=== PATIENT | female | born 1960 | race Caucasian/White ===

== ENCOUNTER 2018-04-20 15:27 | Inpatient (IN) | payer OTHER ==
[~2018-04-20] VITALS: Ht 180.3 cm; Wt 133.6 kg
[2018-04-20] MEDS ORDERED: SODIUM CHLORIDE 0.9% 1000ML 1,000 ML IV STA (15:44)
[2018-04-20 16:37] LABS: CLARITY,URINE SL CLOUDY (CLEAR); COLOR,URINE YELLOW (YELLOW); KETONES,URINE 1+ (NEGATIVE); LEUKOCYTE ESTERASE ,URINE TRACE (NEGATIVE); NITRITE,URINE NEGATIVE (NEGATIVE); PROTEIN,URINE DIPSTICK 2+ (NEGATIVE); URINE UROBILINOGEN 1 mg/dL (0.2 - 1)
[2018-04-20 16:38] LABS: BILIRUBIN,URINE 2+ (NEGATIVE)
--- NOTE | 2018-04-20 16:46 | Diagnostic Imaging Report ---
EXAMINATION: CHEST 2 VIEWS INDICATION: ^FEVER UNKNOWN SOURCE ^[id number] ^1605 ^N COMPARISON: None FINDINGS: PA and lateral views TUBES and LINES: None. LUNGS: Lungs are well inflated. Diffuse reticular nodular opacities throughout the right lung and left lower lobe. no pulmonary edema. PLEURA: No pleural effusion or pneumothorax. HEART AND MEDIASTINUM: The cardiomediastinal silhouette is unremarkable. BONES AND SOFT TISSUES: No acute osseous lesion. Soft tissues are unremarkable. UPPER ABDOMEN: No free air under the diaphragm. IMPRESSION: Radiographic findings highly suggestive of multifocal pneumonia. Recommend follow-up in 4-6 weeks to demonstrate resolution. Signed by: Dr. Iliana Aguilar M.D. on 04/20/2018 4:42 PM
[2018-04-20 16:48] LABS: AMORPHOUS SEDIMENT,URINE FEW (FEW); BACTERIA,URINE MANY /HPF; EPITHELIAL CELLS,URINE FEW /LPF; TRANSITIONAL EPI CELLS,URINE FEW
[2018-04-20 16:54] LABS: BASOPHILS % 0.1 % (0.0-1.0); EOSINOPHILS % 0.1 % (0.0-6.0); HEMOGLOBIN 13.8 g/dL (12.0-16.0); LYMPHOCYTES # (AUTO) 0.5 (1.0-3.2); LYMPHOCYTES % 3.4 % (18.0-39.1); MEAN CORPUSCULAR HEMOGLOBIN 26.8 pg (28-32); MEAN CORPUSCULAR HGB CONC 32.9 g/dL (31-35); MEAN CORPUSCULAR VOLUME 81.6 fL (81-99); MONOCYTES # (AUTO) 1.1 (0.2-0.8); MONOCYTES % 7.6 % (4.4-11.3); NEUTROPHILS % 87.8 % (38.7-80.0); PLATELET COUNT 165 x10e3/uL (140-360); RED BLOOD COUNT 5.15 x10e6/uL (3.6-5.1); RED CELL DISTRIBUTION WIDTH 14.3 % (11.7-14.4)
[2018-04-20] MEDS ORDERED: CEFTRIAXONE SOD 1 GM VIAL IV ONE (17:00)
[2018-04-20 17:15] LABS: ALBUMIN 2.6 g/dL (3.5-5.0); ALBUMIN/GLOBULIN RATIO 0.5 (0.8-2.0); ANION GAP 21.4 mmol/L (8-16); CALCIUM 10.2 mg/dL (8.4-10.2); CREATININE, SERUM 1.56 mg/dL (0.57-1.11); POTASSIUM 3.4 mmol/L (3.5-5.1)
[2018-04-20] MEDS ORDERED: LEVOFLOXACIN 750MG/D5W 150ML 150 ML IV STA (17:18)
[2018-04-20] MEDS ORDERED: LEVOFLOXACIN 750MG/DEXTROSE PREMIX BAG 150ML IV SCH (17:45)
[2018-04-20] MEDS: ALBUTEROL SULF 0.083% NEB SOLN 3 ML NEB NEB SCH ×2 (17:45→21:45)
[2018-04-20 17:54] LABS: LYMPHOCYTES % (MANUAL) 6 % (19-48); MONOCYTES % (MANUAL) 7 % (3.4-9.0); NEUTROPHILS % (MANUAL) 86 % (40-74); PLATELET ESTIMATE ADEQUATE; PLATELET MORPHOLOGY COMMENT RARE EDTA CLUMPING; RBC MORPHOLOGY COMMENT NORMAL
[2018-04-20] MEDS: IPRATROPIUM BROMIDE 0.02% 2.5 ML NEB NEB SCH (18:00)
--- OUTSIDE RECORDS SUMMARY | 2018-04-20 18:07 | XMS REPORT ---
Author Author [facility] Address Unknown Phone Unavailable Care Team Providers Care Statistics Tutor Name Role Phone Hoemr QUARLES Unavailable Unavailable Problems This patient has no known problems. Allergies, Adverse Reactions, Alerts This patient has no known allergies or adverse reactions. Medications This patient has no known medications. Results Test Description Test Time Test Comments Text Results Atomic Results Result Comments CHEST 2 VIEWS 2018-04-20 16:41:00 [place] [address] Patient Name: JEREMIAS JOAQUIN MR #: [id number] : 1960 Age/Sex: 57/F Req #: [id number] Adm Physician: Ordered by: DELORIS QUARLES MD Report #: [id number] Location: ER Room/Bed: Procedure: [id number] DX/CHEST 2 VIEWS Exam Date: 04/20/18 Exam Time: 1605 REPORT STATUS: Signed EXAMINATION: CHEST 2 VIEWS INDICATION: FEVER UNKNOWN SOURCE [id number] N COMPARISON: None FINDINGS: PA and lateral views TUBES and LINES: None. LUNGS: Lungs are well inflated. Diffuse reticular nodular opacities throughout the right lung and left lower lobe. no pulmonary edema. PLEURA: No pleural effusion or pneumothorax. HEART AND MEDIASTINUM: The cardiomediastinal silhouette is unremarkable. BONES AND SOFT TISSUES: No acute osseous lesion. Soft tissues are unremarkable. UPPER ABDOMEN: No free air under the diaphragm. IMPRESSION: Radiographic findings highly suggestive of multifocal pneumonia. Recommend follow-up in 4-6 weeks to demonstrate resolution. Signed by: Dr. Magnolia Gibbons M.D. on 04/20/2018 4:42 PM Dictated By: MAGNOLIA GIBBONS MD 41 Transcribed By: SERINA on 04/20/181641 COPY TO: DELORIS QUARLES MD
[2018-04-20 20:23] VITALS: BP 125/59
[2018-04-20] MEDS: SODIUM CHLORIDE 0.9% 1000ML 1,000 ML IV SCH (21:26)
[2018-04-20] MEDS: CEFEPIME HCL 1 GM VIAL IV SCH (22:50)
[2018-04-20] MEDS: VANCOMYCIN 1GM/NS 250 ML 250 ML IV SCH (22:50)
[2018-04-20 22:51] VITALS: BP 125/59
[2018-04-20 22:57] VITALS: BP 125/59
[2018-04-21] VITALS (8 sets, daily range): BP systolic 104–142; BP diastolic 44–62
[2018-04-21] MEDS: ACETAMINOPHEN 325 MG TAB PO PRN (00:45)
[2018-04-21] MEDS: ALBUTEROL SULF 0.083% NEB SOLN 3 ML NEB NEB SCH ×7 (01:45→23:30)
[2018-04-21 05:11] LABS: BASOPHILS % 0.2 % (0.0-1.0); EOSINOPHILS # (AUTO) 0.1 (0.0-0.4); EOSINOPHILS % 0.9 % (0.0-6.0); HEMATOCRIT 37.1 % (34.2-44.1); LYMPHOCYTES # (AUTO) 0.7 (1.0-3.2); MEAN CORPUSCULAR HEMOGLOBIN 26.3 pg (28-32); MEAN CORPUSCULAR HGB CONC 32.3 g/dL (31-35); MEAN CORPUSCULAR VOLUME 81.2 fL (81-99); MONOCYTES # (AUTO) 0.9 (0.2-0.8); MONOCYTES % 7.4 % (4.4-11.3); NEUTROPHILS # (AUTO) 9.7 (2.1-6.9); NEUTROPHILS % 83.9 % (38.7-80.0); PLATELET COUNT 142 x10e3/uL (140-360); RED BLOOD COUNT 4.57 x10e6/uL (3.6-5.1); RED CELL DISTRIBUTION WIDTH 14.6 % (11.7-14.4)
[2018-04-21 05:27] LABS: ANION GAP 16.3 mmol/L (8-16); CALCIUM 9.3 mg/dL (8.4-10.2); CREATININE, SERUM 1.12 mg/dL (0.57-1.11); POTASSIUM 3.3 mmol/L (3.5-5.1)
[2018-04-21] MEDS: CEFEPIME HCL 1 GM VIAL IV SCH ×3 (05:38→22:00)
[2018-04-21] MEDS: SODIUM CHLORIDE 0.9% 1000ML 1,000 ML IV SCH (05:39)
[2018-04-21] MEDS: IPRATROPIUM BROMIDE 0.02% 2.5 ML NEB NEB SCH ×5 (06:00→23:30)
--- NOTE | 2018-04-21 06:52 | Diagnostic Imaging Report ---
EXAMINATION: CHEST SINGLE (PORTABLE) INDICATION: Pneumonia COMPARISON: 04/20/2018 FINDINGS: TUBES and LINES: None. LUNGS: Progression of airspace disease involving the right hemithorax predominantly the right upper lobe PLEURA: No pleural effusion or pneumothorax. HEART AND MEDIASTINUM: Cardiac size is mildly enlarged. BONES AND SOFT TISSUES: No acute osseous lesion. Soft tissues are unremarkable. UPPER ABDOMEN: No free air under the diaphragm. IMPRESSION: Progression of airspace disease involving the right hemithorax, predominantly the right upper lobe in keeping with pneumonia. Follow-up until resolution is recommended Signed by: Dr. Justin Gonzalez M.D. on 04/21/2018 6:48 AM
[2018-04-21] MEDS: VANCOMYCIN 1GM/NS 250 ML 250 ML IV SCH ×2 (08:30→21:00)
[2018-04-21] MEDS ORDERED: VANCOMYCIN HCL 1GM/NS 250 ML BAG IV SCH (09:00)
--- NOTE | 2018-04-21 10:01 | Consultation ---
DATE OF CONSULTATION: ADDENDUM X-ray today looks more congested possibly related to pulmonary edema. Will reduce fluids and monitor carefully. Monitor oximetry. Thank you for this kind referral. Job#: [id number] ANSHUL
[2018-04-21] MEDS: POTASSIUM CHLORIDE 20 MEQ TAB CR PO PRN (10:02)
--- NOTE | 2018-04-21 12:37 | Consultation ---
DATE OF CONSULTATION: PULMONARY CONSULTATION This is a patient of Dr. Goldstein. 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 Temperature as high as 102.5. She had been ill for 5 days. Been seen apparently at the school clinic and tested for flu, which she said was negative. She has had a cough. She has been nauseated and vomiting. This was after her illness started. The cough has been nonproductive. No one else ill at home. No regular medications. NO ALLERGIES. She has been a renal transplant donor for her son. She has had C-sections in the past. Works as a home school teacher. Born in [place]. Family history is noncontributory save for her son with renal failure. PHYSICAL EXAMINATION GENERAL: Moderately obese white female in no acute distress. VITALS: Temperature 97.5, pulse 92, respirations 20, blood pressure 132/60. HEAD: Normocephalic and atraumatic. EYES: The extraocular movements are intact. LUNGS: Bilateral rales and rhonchi. HEART: Regular rhythm. ABDOMEN: Nontender. EXTREMITIES: Nonedematous. IMPRESSION 1. Community-acquired pneumonia, likely atypical. 2. Moderately elevated glucose. PLAN: Continue Levaquin. If she becomes febrile again, would consider anaerobic cover. Consider stopping the cefepime and vancomycin if blood cultures are negative. Chest x-ray unable to view because of malfunction of PAC system. Thank you for this kind referral. Job#: [id number]
[2018-04-21] MEDS ORDERED: POTASSIUM CHLORIDE 20 MEQ TAB CR PO STA (16:21)
[2018-04-21] MEDS ORDERED: LEVOFLOXACIN 500MG/D5W 100ML 100 ML IV SCH (17:15)
--- NOTE | 2018-04-21 17:43 | History and Physical ---
HISTORY OF PRESENT ILLNESS: Patient is an 57-year-old female who has no past medical history according to her, who came here because of shortness of breath, cough, fever and generalized feelings of weakness. Patient was found to have pneumonia in the emergency room and very high fever. Started on broad-spectrum IV antibiotics and admitted to the hospital. REVIEW OF SYSTEMS CARDIOVASCULAR: No chest pain or palpitations. RESPIRATORY: She has cough, phlegm and fever. GENITOURINARY: No frequency. No dysuria. GASTROINTESTINAL: No nausea. No vomiting. No diarrhea. ALLERGIES: SHE CLAIMS SHE IS NOT ALLERGIC TO ANY MEDICATION. SOCIAL HISTORY: She does not smoke. She does not drink alcohol. PAST MEDICAL HISTORY: According to the patient, she never had any medical condition. PHYSICAL EXAMINATION VITAL SIGNS: Blood pressure 125/60, temperature 3.5, heart rate 96 per minute, respiratory rate 22 per minute. Oxygen saturation is 95%. HEART: Regular rhythm. Normal S1 and S2 sounds. LUNGS: Decreased breath sounds bilaterally. ABDOMEN: Soft. EXTREMITIES: No evidence of cyanosis, edema or trauma. LABS: On the BMP, sodium 134, potassium 3.3, chloride 98, CO2 23, BUN 13, creatinine 1.12. Glucose 134. On the CBC, white blood count 11,900. Hemoglobin 12.0; hematocrit 37.1; platelet count 142,000. AST 42, ALT 46, total bilirubin 1.0, alkaline phosphatase 184. Blood cultures have been sent, report is pending. Chest x-ray showed evidence of infiltrates in both lungs. The last report of the chest x-ray showed progression of air space disease involving the right hemithorax predominantly right upper lobe in keeping with pneumonia. Followup until resolution is recommended. IMPRESSION 1. Right upper lobe pneumonia. 2. Hypokalemia. 3. Hyponatremia. 4. Obesity. 5. anemia. PLAN OF TREATMENT: Albuterol q.4 h. Oxygen. Continue Atrovent q.6 h. Continue Levaquin 500 mg IV once a day for atypical pneumonia, vancomycin 1 gram IV twice a day, sodium chloride 50 mL an hour, Tylenol 175 mg q.6 h. as needed, cefepime 1 gram IV q.8 h. Continue heparin 5,000 units subcutaneously twice a day for DVT prophylaxis. Potassium has been replaced. We are going to recheck BMP and magnesium level tomorrow. Dr. Hernandez, electronic lab technician, has been consulted on the case. Job#: [id number]
[2018-04-21] MEDS ORDERED: LEVOFLOXACIN 750MG/D5W 150ML 150 ML IV SCH (18:00)
[2018-04-21] MEDS: HEPARIN SOD (PORCINE) 5,000 UNIT/ML VIAL SC SCH (21:00)
[2018-04-22] VITALS (8 sets, daily range): BP systolic 96–149; BP diastolic 46–75
[2018-04-22] MEDS: ALBUTEROL SULF 0.083% NEB SOLN 3 ML NEB NEB SCH ×6 (01:45→19:45)
[2018-04-22] MEDS: SODIUM CHLORIDE 0.9% 1000ML 1,000 ML IV SCH (04:47)
[2018-04-22] MEDS: ACETAMINOPHEN 325 MG TAB PO PRN (04:49)
[2018-04-22] MEDS: CEFEPIME HCL 1 GM VIAL IV SCH ×3 (06:10→21:29)
[2018-04-22 06:43] LABS: BASOPHILS % 0.4 % (0.0-1.0); EOSINOPHILS # (AUTO) 0.2 (0.0-0.4); EOSINOPHILS % 2.3 % (0.0-6.0); LYMPHOCYTES # (AUTO) 0.8 (1.0-3.2); LYMPHOCYTES % 7.6 % (18.0-39.1); MEAN CORPUSCULAR HEMOGLOBIN 26.4 pg (28-32); MEAN CORPUSCULAR HGB CONC 32.4 g/dL (31-35); MEAN CORPUSCULAR VOLUME 81.7 fL (81-99); NEUTROPHILS # (AUTO) 7.3 (2.1-6.9); PLATELET COUNT 151 x10e3/uL (140-360); RED BLOOD COUNT 4.16 x10e6/uL (3.6-5.1); RED CELL DISTRIBUTION WIDTH 14.8 % (11.7-14.4)
[2018-04-22] MEDS: IPRATROPIUM BROMIDE 0.02% 2.5 ML NEB NEB SCH ×3 (06:58→19:45)
[2018-04-22 07:13] LABS: ANION GAP 14.1 mmol/L (8-16); CALCIUM 9.2 mg/dL (8.4-10.2); CREATININE, SERUM 1.02 mg/dL (0.57-1.11); POTASSIUM 3.1 mmol/L (3.5-5.1)
[2018-04-22] MEDS: VANCOMYCIN 1GM/NS 250 ML 250 ML IV SCH ×2 (08:20→21:28)
[2018-04-22] MEDS: POTASSIUM CHLORIDE 20 MEQ TAB CR PO PRN (08:21)
[2018-04-22] MEDS: HEPARIN SOD (PORCINE) 5,000 UNIT/ML VIAL SC SCH ×2 (08:25→21:28)
[2018-04-22 09:17] LABS: BAND NEUTROPHILS % (MANUAL) 1 %; EOSINOPHILS % (MANUAL) 2 % (0-7); LYMPHOCYTES % (MANUAL) 8 % (19-48); MONOCYTES % (MANUAL) 8 % (3.4-9.0); NEUTROPHILS % (MANUAL) 80 % (40-74)
[2018-04-22 09:19] LABS: PLATELET ESTIMATE ADEQUATE; PLATELET MORPHOLOGY COMMENT NORMAL; RBC MORPHOLOGY COMMENT NORMAL
[2018-04-22] MEDS ORDERED: POTASSIUM CHLORIDE 20 MEQ TAB CR PO ONE (12:30)
--- NOTE | 2018-04-22 13:00 | Progress Note ---
DATE: INTERNAL MEDICINE PROGRESS NOTE SUBJECTIVE: She is feeling better today. She has some diarrhea. PHYSICAL EXAMINATION VITAL SIGNS: Blood pressure 112/52. Temperature 97.3. Heart rate 95 per minute. Respiratory rate 18 per minute. Oxygen saturation 92%. HEART: Regular rhythm. Normal S1, S2 sounds. LUNGS: Clear bilaterally. ABDOMEN: Nondistended. EXTREMITIES: No evidence of edema. LABS: On the BMP, sodium 134, potassium 3.1, chloride 100, CO2 23, BUN 10, creatinine 1.02, glucose 138. On the CBC, white blood count 10.0; hemoglobin 11.0; hematocrit 34.0; platelet count 151,000. AST 42, ALT 46, total bilirubin 1.0, and alkaline phosphatase 194. FINAL IMPRESSION 1. Right upper lobe pneumonia. 2. Hypokalemia. 3. Hyponatremia. 4. Obesity. 5. Mild anemia. PLAN OF TREATMENT: Continue albuterol q.4 h., Atrovent q.6 h., vancomycin 1 gram IV twice a day, Levaquin 500 mg IV daily. Continue with Tylenol 975 mg q.6 h. as needed, cefepime 1 gram IV q.8 h., heparin 5,000 units subcutaneously twice a day for DVT prophylaxis, potassium chloride 40 mEq today. BMP and magnesium level tomorrow. Job#: [id number]
[2018-04-22] MEDS: LEVOFLOXACIN 500MG/D5W 100ML 100 ML IV SCH (16:52)
[2018-04-23] VITALS (7 sets, daily range): BP systolic 102–125; BP diastolic 43–67
[2018-04-23] MEDS: ALBUTEROL SULF 0.083% NEB SOLN 3 ML NEB NEB SCH ×7 (01:45→21:45)
[2018-04-23] MEDS: SODIUM CHLORIDE 0.9% 1000ML 1,000 ML IV SCH ×2 (05:43→20:31)
[2018-04-23] MEDS: CEFEPIME HCL 1 GM VIAL IV SCH ×2 (05:44→13:57)
[2018-04-23 06:01] LABS: ANION GAP 14.2 mmol/L (8-16); CALCIUM 9.5 mg/dL (8.4-10.2); CREATININE, SERUM 0.96 mg/dL (0.57-1.11); POTASSIUM 3.2 mmol/L (3.5-5.1)
[2018-04-23] MEDS: IPRATROPIUM BROMIDE 0.02% 2.5 ML NEB NEB SCH ×4 (07:03→20:15)
[2018-04-23] MEDS: VANCOMYCIN 1GM/NS 250 ML 250 ML IV SCH ×2 (09:34→20:31)
[2018-04-23] MEDS: HEPARIN SOD (PORCINE) 5,000 UNIT/ML VIAL SC SCH ×2 (09:35→20:54)
[2018-04-23] MEDS: LEVOFLOXACIN 500MG/D5W 100ML 100 ML IV SCH (17:04)
[2018-04-23] MEDS ORDERED: POTASSIUM CHLORIDE 20 MEQ TAB CR PO STA (17:25)
[2018-04-24] VITALS: BP 119/54
[2018-04-24] MEDS: ALBUTEROL SULF 0.083% NEB SOLN 3 ML NEB NEB SCH ×4 (00:07→11:08)
--- NOTE | 2018-04-24 01:46 | Discharge Summary ---
HISTORY OF PRESENT ILLNESS: This is a 57-year-old female with no past medical history who came to the hospital complaining of shortness of breath. Patient was found to have pneumonia, started on broad-spectrum IV antibiotics, and she is doing better right now. White blood count is back to normal. She is afebrile. Oxygen saturation is more than 93%. The patient has been seen by Dr. Hernandez, vehicle leasing and rental manager, also. One of the antibiotics she has been on is discontinued already by Dr. Blum because of the improvement of symptoms. We are going to check the oxygen on room air, sitting and walking, and if the oxygen saturation is more than 90%, the patient might be able to go home without oxygen, so tentative discharge is for tomorrow if okay with osmar Smith and Dr. Fuller who will be covering for me over the weekend. PHYSICAL EXAM VITAL SIGNS: Blood pressure 106/49, temperature 98 degrees, heart rate 88 per minute, respiratory rate 19 per minute, and oxygen saturation 94%. HEART: Regular rhythm. Normal S1 and S2 sounds. LUNGS: Clear bilaterally. ABDOMEN: Soft. EXTREMITIES: No evidence of cyanosis or trauma. LABORATORY DATA: On the BMP, sodium 139, potassium 3.2, chloride 105, CO2 23, BUN 7, creatinine 0.86, and glucose 138. On the CBC, white blood count 10.0, hemoglobin 11.0, hematocrit 34.0, and platelet count 151 0. AST 42, ALT 46, total bilirubin 1.0, and alkaline phosphatase 184. FINAL IMPRESSION 1. Community-acquired pneumonia. 2. Hypokalemia. 3. Mild anemia. 4. Obesity. PLAN OF TREATMENT: She is going to be discharged on Levaquin 750 mg daily for 10 days if okay with osmar Smith, and if okay with Dr. Fuller who will be covering for me on the weekend. We are going to repeat a BMP and magnesium level tomorrow. Tentative discharge for tomorrow. Follow up will be in a week. Job#: [id number] JENNYFER
[2018-04-24 04:00] VITALS: BP 115/60
[2018-04-24 05:29] LABS: ANION GAP 15.1 mmol/L (8-16); CALCIUM 9.4 mg/dL (8.4-10.2); CREATININE, SERUM 1.01 mg/dL (0.57-1.11); MAGNESIUM 1.9 MG/DL (1.3-2.1); POTASSIUM 3.1 mmol/L (3.5-5.1)
[2018-04-24] MEDS: POTASSIUM CHLORIDE 20 MEQ TAB CR PO PRN (06:32)
[2018-04-24] MEDS: IPRATROPIUM BROMIDE 0.02% 2.5 ML NEB NEB SCH ×4 (07:30→15:12)
[2018-04-24] MEDS: VANCOMYCIN 1GM/NS 250 ML 250 ML IV SCH (07:57)
[2018-04-24] MEDS: HEPARIN SOD (PORCINE) 5,000 UNIT/ML VIAL SC SCH (07:59)
[2018-04-24 08:00] VITALS: BP 112/51
[2018-04-24 09:00] VITALS: BP 112/51
[2018-04-24 12:00] VITALS: BP 105/50
[2018-04-24 12:20] LABS: BASOPHILS # (AUTO) 0.1 (0.0-0.1); BASOPHILS % 0.5 % (0.0-1.0); EOSINOPHILS # (AUTO) 0.4 (0.0-0.4); EOSINOPHILS % 3.7 % (0.0-6.0); HEMATOCRIT 34.6 % (34.2-44.1); HEMOGLOBIN 10.8 g/dL (12.0-16.0); LYMPHOCYTES # (AUTO) 1.1 (1.0-3.2); MEAN CORPUSCULAR HEMOGLOBIN 26.4 pg (28-32); MEAN CORPUSCULAR HGB CONC 31.2 g/dL (31-35); MEAN CORPUSCULAR VOLUME 84.6 fL (81-99); MONOCYTES # (AUTO) 0.7 (0.2-0.8); MONOCYTES % 6.9 % (4.4-11.3); NEUTROPHILS % 62.5 % (38.7-80.0); PLATELET COUNT 240 x10e3/uL (140-360); RED BLOOD COUNT 4.09 x10e6/uL (3.6-5.1); RED CELL DISTRIBUTION WIDTH 15.4 % (11.7-14.4)
[2018-04-24] MEDS ORDERED: POTASSIUM CHLORIDE 20 MEQ TAB CR PO NR (12:23)
[2018-04-24 13:30] LABS: BAND NEUTROPHILS % (MANUAL) 5 %; EOSINOPHILS % (MANUAL) 4 % (0-7); LYMPHOCYTES % (MANUAL) 8 % (19-48); METAMYELOCYTES % (MANUAL) 3 % (0-0); MONOCYTES % (MANUAL) 15 % (3.4-9.0); MYELOCYTES % (MANUAL) 3 % (0-0); NEUTROPHILS % (MANUAL) 62 % (40-74); PLATELET ESTIMATE ADEQUATE; PLATELET MORPHOLOGY COMMENT NORMAL; RBC MORPHOLOGY COMMENT NORMAL
--- NOTE | 2018-04-24 13:56 | Diagnostic Imaging Report ---
EXAMINATION: CHEST 2 VIEWS INDICATION: Pneumonia. COMPARISON: Chest x-ray 04/21/2018 FINDINGS: PA and lateral views TUBES and LINES: None. LUNGS: Lungs are well inflated. Bilateral multifocal pneumonia, right greater than left. Improvement in the right upper lobe. PLEURA: No pleural effusion or pneumothorax. HEART AND MEDIASTINUM: The cardiomediastinal silhouette is unremarkable. BONES AND SOFT TISSUES: No acute osseous lesion. Soft tissues are unremarkable. UPPER ABDOMEN: No free air under the diaphragm. IMPRESSION: Improving multifocal pneumonia especially in the right upper lobe. Signed by: Dr. Chay Murillo M.D. on 04/24/2018 1:53 PM
[2018-04-24 16:00] VITALS: BP 117/53
[2018-04-24] MEDS ORDERED: LEVAQUIN500 MG PO (17:26)
[2018-04-24] MEDS: SODIUM CHLORIDE 0.9% 1000ML 1,000 ML IV SCH (17:49)
== END 2018-04-24 17:57 | disposition home or self-care (01) | DRG 871 ==
LOC: ER 15:27 → ERHOLD 18:05 → MED/SURG2 18:09
PROVIDERS: ADMIT Internal Medicine; ATTEND Internal Medicine
DX: A41.9 Sepsis, unspecified organism (principal); J18.9 Pneumonia, unspecified organism; E87.1 Hypo-osmolality and hyponatremia; Z68.41 Body mass index [BMI] 40.0-44.9, adult; R65.20 Severe sepsis without septic shock; E87.6 Hypokalemia; E86.0 Dehydration; E66.01 Morbid (severe) obesity due to excess calories; D64.9 Anemia, unspecified
CPT/HCPCS: 36415; 71045; 71046; 80048; 80053; 80202; 81001; 83036; 83605; 83735; 85025; 87040; 87070; 87086; 87205; 94640; 99284; J0692; J0696; J1644; J1956; J3370; J7030

== ENCOUNTER 2020-01-10 18:49 | Observation (INO) | payer OTHER ==
[~2020-01-10] VITALS: Ht 180.3 cm; Wt 151.0 kg
[~2020-01-10 18:49] MED LIST: LEVAQUIN500 MG PO
[2020-01-10] MEDS ORDERED: ACETAMINOPHEN 325 MG TAB PO NR (19:45)
[2020-01-10] MEDS ORDERED: ONDANSETRON HCL INJ 2MG/ML 2ML 2 MG/ML VIAL IV STA (19:45)
[2020-01-10] MEDS ORDERED: PANTOPRAZOLE 40 MG 10ML VIAL IV STA (19:45)
[2020-01-10] MEDS ORDERED: DICYCLOMINE HCL 20 MG/2 ML VIAL IM ONE ×2 (19:45→19:50)
[2020-01-10] MEDS ORDERED: PANTOPRAZOLE 40 MG 10ML VIAL ONE (19:50)
[2020-01-10] MEDS ORDERED: ACETAMINOPHEN 325 MG TAB ONE (19:50)
[2020-01-10] MEDS ORDERED: ONDANSETRON HCL INJ 2MG/ML 2ML 2 MG/ML VIAL ONE (19:50)
--- NOTE | 2020-01-10 20:05 | Emergency Department Note ---
History of Present Illnes History of Present Illness Chief Complaint: Abdominal Complaints History of Present Illness This is a 59 year old female epigastric pain, intermittent `fever with nausea x1 day, vomiting yesterday; STATES WORSE AFTER EATING, . Historian: Patient Arrival Mode: Car Onset (how long ago): day(s) (1) Location: UPPER ABDOMEN Quality: PAIN Radiation: Reports non-radiation Severity: moderate Onset quality: sudden Duration (how long): day(s) (1) Progression: unchanged Chronicity: new Context: Denies recent illness Relieving factors: none Exacerbating factors: other (EATING) Associated symptoms: Reports denies other symptoms Treatments prior to arrival: none Past Medical/Family History Physician Review I have reviewed the patient's past medical and family history. Any updates have been documented here. Past Medical History Recent Fever: No Clinical Suspicion of Infectio: No New/Unexplained Change in Ment: No Past Medical History: None Past Surgical History: Other Surgery: Kidney removed (donation) Social History Smoking Cessation: Never Smoker Counseling Performed: No Alcohol Use: None Any Illegal Drug Use: No Physically hurt or threatened: No Other Last Tetanus: UTD Any Pre-Existing Lines (PICC,: No Review of Systems Review of Systems Constitutional: Reports no symptoms EENTM: Reports no symptoms Cardiovascular: Reports no symptoms Respiratory: Reports no symptoms Gastrointestinal: Reports as per HPI Genitourinary: Reports no symptoms Musculoskeletal: Reports no symptoms Integumentary: Reports no symptoms Neurological: Reports no symptoms Psychological: Reports no symptoms Endocrine: Reports no symptoms Hematological/Lymphatic: Reports no symptoms Physical Exam Related Data Allergies: Coded Allergies: No Known Allergies (Unverified , 04/20/18) Triage Vital Signs Vital Signs Date Time Temp Pulse Resp B/P (MAP) Pulse Ox O2 Delivery O2 Flow Rate FiO2 01/10/20 19:34 99.3 89 18 161/81 98 Room Air Vital signs reviewed: Yes Physical Exam CONSTITUTIONAL Constitutional: Present well-developed, Present well-nourished, Present distressed (MILD) HENT HENT: Present normocephalic, Present atraumatic, Present oropharynx clear/moist, Present nose normal HENT L/R: Present left ext ear normal, Present right ext ear normal EYES Eyes: Reports PERRL, Reports conjunctivae normal NECK Neck: Present ROM normal PULMONARY Pulmonary: Present effort normal, Present breath sounds normal CARDIOVASCULAR Cardiovascular: Present regular rhythm, Present heart sounds normal, Present capillary refill normal, Present normal rate GASTROINTESTINAL Abdominal: Present soft, Present bowel sounds normal, Present tender (MODERATED EPIGASTRIC AND RUQ) GENITOURINARY Genitourinary: Present exam deferred SKIN Skin: Present warm, Present dry MUSCULOSKELETAL Musculoskeletal: Present ROM normal NEUROLOGICAL Neurological: Present alert, Present oriented x 3, Present no gross motor or sensory deficits PSYCHOLOGICAL Psychological: Present mood/affect normal, Present judgement normal Results Laboratory Laboratory Laboratory Tests Test 01/10/20 19:41 White Blood Count 10.08 x10e3/uL (4.8-10.8) Red Blood Count 5.93 x10e6/uL (3.6-5.1) Hemoglobin 15.4 g/dL (12.0-16.0) Hematocrit 48.5 % (34.2-44.1) Mean Corpuscular Volume 81.8 fL (81-99) Mean Corpuscular Hemoglobin 26.0 pg (28-32) Mean Corpuscular Hemoglobin Concent 31.8 g/dL (31-35) Red Cell Distribution Width 13.5 % (11.7-14.4) Platelet Count 201 x10e3/uL (140-360) Neutrophils (%) (Auto) 82.4 % (38.7-80.0) Lymphocytes (%) (Auto) 8.4 % (18.0-39.1) Monocytes (%) (Auto) 8.5 % (4.4-11.3) Eosinophils (%) (Auto) 0.1 % (0.0-6.0) Basophils (%) (Auto) 0.1 % (0.0-1.0) Neutrophils # (Auto) 8.3 (2.1-6.9) Lymphocytes # (Auto) 0.9 (1.0-3.2) Monocytes # (Auto) 0.9 (0.2-0.8) Eosinophils # (Auto) 0.0 (0.0-0.4) Basophils # (Auto) 0.0 (0.0-0.1) Absolute Immature Granulocyte (auto 0.05 x10e3/uL (0-0.1) Sodium Level 136 mmol/L (136-145) Potassium Level 3.8 mmol/L (3.5-5.1) Chloride Level 97 mmol/L (98-107) Carbon Dioxide Level 28 mmol/L (22-29) Anion Gap 14.8 mmol/L (8-16) Blood Urea Nitrogen 8 mg/dL (7-26) Creatinine 1.15 mg/dL (0.57-1.11) Estimat Glomerular Filtration Rate 48 ML/MIN (60-) BUN/Creatinine Ratio 7 (6-25) Glucose Level 173 mg/dL (74-118) Calcium Level 10.1 mg/dL (8.4-10.2) Total Bilirubin 1.1 mg/dL (0.2-1.2) Aspartate Amino Transf (AST/SGOT) 29 IU/L (5-34) Alanine Aminotransferase (ALT/SGPT) 52 IU/L (0-55) Alkaline Phosphatase 97 IU/L (40-150) Creatine Kinase 49 IU/L (29-168) Creatine Kinase MB 0.70 ng/mL (0-5.0) Troponin I 0.052 ng/mL (0-0.300) Total Protein 7.5 g/dL (6.5-8.1) Albumin 3.8 g/dL (3.5-5.0) Globulin 3.7 g/dL (2.3-3.5) Albumin/Globulin Ratio 1.0 (0.8-2.0) Amylase Level 54 U/L (25-125) Lipase 32 U/L (8-78) Lab results reviewed: Yes Imaging Imaging results reviewed: Yes Impressions Procedure: [id number] US/US GALLBLADDER Exam Date: 01/10/20 Exam Time: 2105 REPORT STATUS: Signed EXAM: Right Upper Quadrant Ultrasound INDICATION: Right upper quadrant pain. COMPARISON: None. TECHNIQUE: Transverse and longitudinal images of the right upper abdomen were obtained. FINDINGS: Liver: Size: 15.3 cm in the right midclavicular line, normal Appearance: Normal echogenicity, smooth contour Mass: No focal masses Gallbladder: Stones/Sludge: Mobile echogenic stone in the gallbladder fundus. Wall: 0.3 cm, upper limit of normal Appearance: Distended, borderline hydropic Sonographic George's Sign: Negative Bile Ducts: Intrahepatic Ducts: No dilatation Extrahepatic Ducts: Common bile duct measures 0.287 cm, no dilatation Pancreas: Not well seen Right Kidney: Size: 12.1 cm Echogenicity: Normal Parenchymal thickness: Normal Collecting system: No hydronephrosis Stones: None Cyst/Mass: None Vessels: Aorta: Visualized portions are normal Inferior Vena Cava: Visualized portions are normal Main portal vein: Normal size and flow direction. Free Fluid: No ascites or pleural effusion IMPRESSION: Borderline gallbladder hydrops and cholelithiasis. Cholecystitis is possible. Signed by: Isaura Hernandez DO on 01/10/2020 10:43 PM Dictated By: ISAURA HERNANDEZ DO 42 Transcribed By: SERINA on 01/10/202242 COPY TO: VIVEK GONZALES MD~ Procedures 12 Lead ECG Interpretation ECG Interpretation : ECG: ECG 1 Configuration Management Manager: Interpreted by ED physician Date: Jan 10, 2020 Time: 19:38 Rhythm: sinus rhythm Rate: normal BPM: 85 QRS axis: normal ST segments normal: Yes T waves normal: Yes Clinical Impression: normal ECG Assessment & Plan Medical Decision Making MDM PT WITH UPPER ABD PAIN, N/V CBC,CMP. EKG, CARDIAC ENZYMES, GALLBLADDER US, AMYLASE, LIPASE, ORDERED TO EVAL FOR MYOCARDIAL INFARCTION, ELEVATED LFT'S, GALLSTONES, PANCREATITIS, ELECTROLYTE ABNORMALITY PROTONIX 40 MG IV ORDERED ZOFRAN 4 MG IV ORDERED BENTYL 20 MG IM ORDERED PT FOUND TO HAVE CHOLECYSTITIS, I SPOKE WITH DR TIMMONS AND DR KIM ADMIT TO INPATIENT, KEEP NPO Reassessment Reassessment time: 23:42 Reassessment PT STILL WITH UPPER ABD PAIN, I WENT OVER LABS AND ULTRASOUND REPORT WITH PT, ADVISED PT SHE WOULD BE ADMITTED FOR CHOLECYSTECTOMY. Assessment & Plan Final Impression: (1) Cholecystitis Last Vital Signs Date Time Temp Pulse Resp B/P (MAP) Pulse Ox O2 Delivery O2 Flow Rate FiO2 01/10/20 19:34 99.3 89 18 161/81 98 Room Air Home Meds Reported Medications Levofloxacin (LEVAQUIN) 500 Mg Tablet, 500 MG PO DAILY for 10 Days, TAB 04/24/18 Medications in the ED Dicyclomine HCl 20 mg STK-MED ONCE IM ; Start 01/10/20 at 19:50; Stop 01/10/20 at 19:44; Status DC Acetaminophen 975 mg STK-MED ONCE .ROUTE ; Start 01/10/20 at 19:50; Stop 01/10/20 at 19:44; Status DC Ondansetron HCl 4 mg STK-MED ONCE .ROUTE ; Start 01/10/20 at 19:50; Stop 01/10/20 at 19:44; Status DC Pantoprazole Sodium 40 mg STK-MED ONCE .ROUTE ; Start 01/10/20 at 19:50; Stop 01/10/20 at 19:44; Status DC Pantoprazole Sodium 40 mg NOW STAT IV Last administered on 01/10/20at 19:51; Admin Dose 40 MG; Start 01/10/20 at 19:45; Stop 01/10/20 at 19:46; Status UNV Ondansetron HCl 4 mg NOW STAT IV Last administered on 01/10/20at 19:51; Admin Dose 4 MG; Start 01/10/20 at 19:45; Stop 01/10/20 at 19:46; Status UNV Dicyclomine HCl 20 mg ONCE ONCE IM Last administered on 01/10/20at 19:51; Admin Dose 20 MG; Start 01/10/20 at 19:45; Stop 01/10/20 at 19:46; Status UNV Acetaminophen 650 mg ONCE ONCE PO ; Start 01/10/20 at 19:45; Stop 01/10/20 at 19:46; Status UNV VIVEK GONZALES MD Jan 10, 2020 20:04
[2020-01-10 20:10] LABS: BASOPHILS % 0.1 % (0.0-1.0); EOSINOPHILS % 0.1 % (0.0-6.0); HEMATOCRIT 48.5 % (34.2-44.1); HEMOGLOBIN 15.4 g/dL (12.0-16.0); LYMPHOCYTES # (AUTO) 0.9 (1.0-3.2); LYMPHOCYTES % 8.4 % (18.0-39.1); MEAN CORPUSCULAR HGB CONC 31.8 g/dL (31-35); MEAN CORPUSCULAR VOLUME 81.8 fL (81-99); MONOCYTES # (AUTO) 0.9 (0.2-0.8); MONOCYTES % 8.5 % (4.4-11.3); NEUTROPHILS # (AUTO) 8.3 (2.1-6.9); NEUTROPHILS % 82.4 % (38.7-80.0); PLATELET COUNT 201 x10e3/uL (140-360); RED BLOOD COUNT 5.93 x10e6/uL (3.6-5.1); RED CELL DISTRIBUTION WIDTH 13.5 % (11.7-14.4)
[2020-01-10] MEDS ORDERED: ONDANSETRON HCL INJ 2MG/ML 2ML 2 MG/ML VIAL IV NR (20:15)
[2020-01-10] MEDS ORDERED: DICYCLOMINE HCL 20 MG/2 ML VIAL IM NR (20:15)
[2020-01-10] MEDS ORDERED: PANTOPRAZOLE 40 MG 10ML VIAL IV NR (20:15)
[2020-01-10 20:29] LABS: ALBUMIN 3.8 g/dL (3.5-5.0); AMYLASE 54 U/L (25-125); ANION GAP 14.8 mmol/L (8-16); CALCIUM 10.1 mg/dL (8.4-10.2); CREATININE, SERUM 1.15 mg/dL (0.57-1.11); LIPASE 32 U/L (8-78); POTASSIUM 3.8 mmol/L (3.5-5.1)
[2020-01-10 20:36] LABS: CREATINE KINASE MB 0.7 ng/mL (0-5.0)
--- NOTE | 2020-01-10 22:47 | Diagnostic Imaging Report ---
EXAM: Right Upper Quadrant Ultrasound INDICATION: Right upper quadrant pain. COMPARISON: None. TECHNIQUE: Transverse and longitudinal images of the right upper abdomen were obtained. FINDINGS: Liver: Size: 15.3 cm in the right midclavicular line, normal Appearance: Normal echogenicity, smooth contour Mass: No focal masses Gallbladder: Stones/Sludge: Mobile echogenic stone in the gallbladder fundus. Wall: 0.3 cm, upper limit of normal Appearance: Distended, borderline hydropic Sonographic George's Sign: Negative Bile Ducts: Intrahepatic Ducts: No dilatation Extrahepatic Ducts: Common bile duct measures 0.287 cm, no dilatation Pancreas: Not well seen Right Kidney: Size: 12.1 cm Echogenicity: Normal Parenchymal thickness: Normal Collecting system: No hydronephrosis Stones: None Cyst/Mass: None Vessels: Aorta: Visualized portions are normal Inferior Vena Cava: Visualized portions are normal Main portal vein: Normal size and flow direction. Free Fluid: No ascites or pleural effusion IMPRESSION: Borderline gallbladder hydrops and cholelithiasis. Cholecystitis is possible. Signed by: Donald Hernandez DO on 01/10/2020 10:43 PM
[2020-01-10] MEDS ORDERED: MORPHINE SULFATE INJ 4 MG/ML INJ 1ML IV PRN (23:45)
[2020-01-11] VITALS (9 sets, daily range): BP systolic 123–158; BP diastolic 73–98
[2020-01-11] MEDS ORDERED: ACETAMINOPHEN 325 MG SUPP PR PRN (00:30)
[2020-01-11] MEDS: SODIUM CHLORIDE 0.9% 1000ML 1,000 ML IV SCH ×3 (00:49→15:45)
--- NOTE | 2020-01-11 00:50 | NUR ---
RECEIVED PATIENT FROM ER IN STABLE CONDITION, NO SIGNS OF DISTRESS NOTED. IV FLUIDS ARE RUNNING AT ORDERED RATE AND PATIENT VOICES PAIN AT A LEVEL OF 4 AND DECLINED MEDICATION. LUNG SOUNDS ARE CLEAR AND PATIENT MEDICATED FOR NAUSEA. BED IN LOWEST POSITION, BOTH SIDE RAILS ARE UP, CALL LIGHT IS WITHIN EASY REACH, WILL CONTINUE TO MONITOR.
[2020-01-11] MEDS: ONDANSETRON HCL INJ 2MG/ML 2ML 2 MG/ML VIAL IV PRN (01:00)
[2020-01-11 05:49] LABS: CHOL/HDL RATIO 2.8 (3.0-3.6); MAGNESIUM 1.9 MG/DL (1.3-2.1); PHOSPHORUS 2.8 MG/DL (2.3-4.7)
[2020-01-11] MEDS: PIPER-TAZ 3.375 GM / NS 50ML IV SCH ×2 (05:57→14:00)
[2020-01-11 06:05] LABS: ALBUMIN 3.4 g/dL (3.5-5.0); ANION GAP 11.9 mmol/L (8-16); CALCIUM 9.1 mg/dL (8.4-10.2); CREATININE, SERUM 1.3 mg/dL (0.57-1.11); POTASSIUM 3.9 mmol/L (3.5-5.1)
[2020-01-11 06:11] LABS: THYROID STIMULATING HORMONE 1.745 uIU/mL (0.350-4.940)
[2020-01-11 06:25] LABS: BASOPHILS % 0.2 % (0.0-1.0); EOSINOPHILS % 0.2 % (0.0-6.0); HEMATOCRIT 44.6 % (34.2-44.1); HEMOGLOBIN 13.9 g/dL (12.0-16.0); LYMPHOCYTES # (AUTO) 1.2 (1.0-3.2); LYMPHOCYTES % 12.6 % (18.0-39.1); MEAN CORPUSCULAR HEMOGLOBIN 25.7 pg (28-32); MEAN CORPUSCULAR HGB CONC 31.2 g/dL (31-35); MEAN CORPUSCULAR VOLUME 82.6 fL (81-99); MONOCYTES # (AUTO) 1.1 (0.2-0.8); MONOCYTES % 11.5 % (4.4-11.3); NEUTROPHILS # (AUTO) 6.9 (2.1-6.9); NEUTROPHILS % 75.1 % (38.7-80.0); PLATELET COUNT 202 x10e3/uL (140-360); RED CELL DISTRIBUTION WIDTH 13.7 % (11.7-14.4)
--- NOTE | 2020-01-11 07:10 | NUR ---
RCD PT AT BED PT IS ALERT AND ORIENTED IV PATENT BY SALINE FLUSH BED LOW AND LOCKED CALL LIGHT IN REACH
--- NOTE | 2020-01-11 08:51 | Consultation ---
DATE OF CONSULTATION: 01/11/2020 CHIEF COMPLAINT: Abdominal pain. HISTORY OF PRESENT ILLNESS: The patient is a 59-year-old female, complaining of pain in the epigastric area, radiating to the mid chest for 2 days. No fever or diarrhea. No prior episode of similar attacks. PAST MEDICAL HISTORY: Positive for chronic GERD. PAST SURGICAL HISTORY: Positive for and nephrectomy for donor purpose. ALLERGIES: NO DRUG ALLERGIES. SOCIAL HABITS: No smoking or alcohol abuse. REVIEW OF SYSTEMS: No cough, chest pain, shortness of breath, or fevers. PHYSICAL EXAMINATION: VITAL SIGNS: Stable, afebrile. GENERAL: She is awake, alert, in moderate discomfort. HEENT: Sclerae are nonicteric. NECK: Supple. LUNGS: Clear. HEART: Regular rate and rhythm. ABDOMEN: Soft with some guarding tenderness in the epigastric region with no rebound. EXTREMITIES: No cyanosis or edema. LABORATORY DATA: White cell count is 9, hemoglobin of 13.9, and platelet count of 202. Creatinine 1.3. Liver function tests within normal limits with lipase of 27. Ultrasound of the gallbladder show borderline gallbladder hydrops and gallstones, possible cholecystitis. PLAN: HIDA scan ordered. We will follow the patient for possible cholecystectomy if cholecystitis is confirmed. Sergio Clayton MD DNL/MODL /[id number]
[2020-01-11] MEDS ORDERED: MORPHINE SULFATE INJ 4 MG/ML INJ 1ML IV ONE (15:00)
--- NOTE | 2020-01-11 16:22 | Diagnostic Imaging Report ---
HIDA Scan with Morphine Challenge Clinical information: Abdominal pain with N/V; cholelithiasis on ultrasound of 01/10/2020 Report: Following the administration of 6.5 of Tc-99m mebrofenin, dynamic images of the abdomen in the anterior projection were obtained through 60 minutes. Then, morphine sulfate 4 mg was administered via slow IV push and additional images were obtained through 30 minutes. Perfusion to the liver is normal. Extraction of tracer by the liver parenchyma is normal. Tracer appears promptly within the biliary tract. Tracer is seen within the small bowel by 30 minutes. The gallbladder does not fill during the initial 60 minutes of dynamic imaging. Following administration of morphine, the gallbladder also does not fill. Impression: Absence of filling of the gallbladder, even following administration of morphine, is consistent with the diagnosis of acute cystic duct obstruction/acute cholecystitis. Signed by: Dr. Huong Cain M.D. on 01/11/2020 4:19 PM
--- NOTE | 2020-01-11 18:45 | NUR ---
PT RESTING ON BED BED SIDE REPORT GIVEN TO ONCOMING NURSE
--- NOTE | 2020-01-11 19:22 | NUR ---
Patient received sitting up in bed. AAO x 4. Patient had no complaints of pain. Respirations even and non-labored. IVF infusing at 125 cc/hr. Fall precautions implemented. Patient instructed to call for assistance when needed. Call light within reach.
[2020-01-12] VITALS (8 sets, daily range): BP systolic 113–192; BP diastolic 56–93
[2020-01-12] MEDS: PIPER-TAZ 3.375 GM / NS 50ML IV SCH ×4 (01:38→21:52)
[2020-01-12] MEDS: SODIUM CHLORIDE 0.9% 1000ML 1,000 ML IV SCH (02:30)
[2020-01-12 05:45] LABS: BASOPHILS % 0.3 % (0.0-1.0); EOSINOPHILS # (AUTO) 0.1 (0.0-0.4); EOSINOPHILS % 2.1 % (0.0-6.0); HEMATOCRIT 41.3 % (34.2-44.1); HEMOGLOBIN 12.6 g/dL (12.0-16.0); LYMPHOCYTES # (AUTO) 1.4 (1.0-3.2); LYMPHOCYTES % 21.8 % (18.0-39.1); MEAN CORPUSCULAR HEMOGLOBIN 26.5 pg (28-32); MEAN CORPUSCULAR HGB CONC 30.5 g/dL (31-35); MEAN CORPUSCULAR VOLUME 86.9 fL (81-99); MONOCYTES # (AUTO) 0.7 (0.2-0.8); MONOCYTES % 11.9 % (4.4-11.3); NEUTROPHILS # (AUTO) 3.9 (2.1-6.9); NEUTROPHILS % 63.3 % (38.7-80.0); PLATELET COUNT 154 x10e3/uL (140-360); RED BLOOD COUNT 4.75 x10e6/uL (3.6-5.1); RED CELL DISTRIBUTION WIDTH 13.5 % (11.7-14.4)
[2020-01-12 05:53] LABS: ANION GAP 10.4 mmol/L (8-16); CALCIUM 8.4 mg/dL (8.4-10.2); CREATININE, SERUM 1.28 mg/dL (0.57-1.11); POTASSIUM 3.4 mmol/L (3.5-5.1)
[2020-01-12] MEDS ORDERED: BUPIVACAINE 0.25%/EPI 30ML SDV INJ ONE (09:50)
--- NOTE | 2020-01-12 10:00 | NUR ---
patient off the unit for procedure, Alert with no distress, talked earlier with Dr Clayton @[id number], Read back Hida scan result, new orders recvd
[2020-01-12] MEDS ORDERED: ONDANSETRON HCL INJ 2MG/ML 2ML 2 MG/ML VIAL ONE (13:14)
[2020-01-12] MEDS ORDERED: METOCLOPRAMIDE HCL 10 MG/2ML VIAL ONE (13:15)
[2020-01-12] MEDS ORDERED: PROMETHAZINE HCL (IM) 25 MG/ML VIAL ONE (13:20)
--- NOTE | 2020-01-12 16:21 | Operative Report ---
DATE OF PROCEDURE: 01/12/2020 SURGEON: Sergio Clayton MD PREOPERATIVE DIAGNOSIS: Cholecystitis. POSTOPERATIVE DIAGNOSIS: Cholecystitis. PROCEDURE: Laparoscopic cholecystectomy. ANESTHESIA: General. INDICATIONS: A 59-year-old female with epigastric right upper quadrant abdominal pain and ultrasound showed gallstones. The patient also had a HIDA scan, which showed nonvisualization of the gallbladder, suggesting acute obstruction of the cystic duct. The patient consented for cholecystectomy. Attendant risks discussed. PROCEDURE FINDINGS: Acute cholecystitis with stone lodging at the neck of the gallbladder. DESCRIPTION OF PROCEDURE: The patient was brought to the OR and intubated. The abdomen was prepped and draped in sterile fashion. An infraumbilical incision was made and a 10 mm port inserted. Insufflation then began and direct vision of the port site placed in the midepigastric right upper quadrant. Gallbladder was distended and inflamed, it is decompressed with a needle. Fundus then retracted in cephalad direction and the neck of the gallbladder retracted laterally with blunt and sharp dissection. We proceeded to isolate the cystic artery and cystic duct, and clearly visualized the junction of common bile duct before triple clipping the cystic artery and cystic duct and divided between clips. The gallbladder detached from the liver and taken out through umbilical port site with an Endopouch. Operative field was irrigated. Hemostasis was achieved. All ports were removed under direct vision. Fascia was closed with 0 Vicryl and skin was closed with subcuticular stitch. The patient was extubated, and transported to recovery room. Blood loss was 20 mL. Sergio Clayton MD DNL/MODL /[id number]
[2020-01-12] MEDS: ONDANSETRON HCL INJ 2MG/ML 2ML 2 MG/ML VIAL IV PRN ×2 (17:46→21:52)
--- NOTE | 2020-01-12 17:59 | NUR ---
patient up in bed, tolerated cup of water, c/o nausea, PRN Zofran given, 5 Trochar site of the abdomen is intact, no redness or leaking, Not in any distress. Keep monitoring.
[2020-01-13 00:02] VITALS: BP 165/85
--- NOTE | 2020-01-13 02:08 | Progress Note ---
DATE: 01/12/2020 CONSULTING PHYSICIAN: Sergio clayton MD SUBJECTIVE: The patient is lying supine in bed and complained of nausea earlier per RN according to documentation from PACU. The patient gradually awaken from anesthesia. Zofran 4 mg and Reglan 10 mg given for complaints of nausea and subsequently Phenergan 6.25 mg IV push for continued complaints of nausea, which resolved. OBJECTIVE: VITAL SIGNS: Temperature 98.3, heart rate 65, blood pressure 123/70, respirations 16, and oxygen saturation 95%. GENERAL: Supine in bed, asleep. LUNGS: Clear to auscultation. Respiratory pattern even and unlabored. HEENT: EOMI. NECK: Supple. CARDIOVASCULAR: Regular rate and rhythm. No murmur. ABDOMEN: Bowel sounds positive. Soft and nontender. Except with palpation, only mild tenderness. No guarding. EXTREMITIES: Without pitting edema. No clubbing, cyanosis, edema, or signs of DVT. NEUROLOGICAL: GCS 15. Nonfocal. LABORATORY DATA: WBC 6.2, hemoglobin 12.6, hematocrit 41.3, platelets 154. Sodium 139, potassium 3.4, chloride 103, CO2 of 29, BUN 10 and creatinine 1.28, glucose 125, estimated GFR 43. Coronavirus on 01/09, not detected. No new imaging studies. ASSESSMENT AND PLAN: 1. Acute cholecystitis with cholelithiasis, status post cholecystectomy on 01/12/2020, by Dr. Clayton. Continue Zosyn and continue pain control with morphine sulfate, Zofran p.r.n. for nausea. The patient has been placed on a clear liquid diet by Surgery. 2. Controlled type 2 diabetes mellitus, this is a new diagnosis. Her hemoglobin A1c was 6.5% on 01/10. The patient was told of the diagnosis and informed that currently it is controlled. Her hemoglobin A1c is less than 7. Serum glucose on lab today 125. 3. Acute kidney injury. Baseline GFR likely 50s per 2018 records. Probable chronic kidney disease 3. Monitor renal labs. Hydrate with IV fluids. Currently to be on normal saline at 125 mL an hour. Right now, EGFR 43 (42). 4. Mild hypoxia. Oxygen saturation 95% earlier this morning. Incentive spirometry explained and encouraged with preoperative education when I saw her on 01/10. 5. After mild hypoxia, morbid obesity with BMI 46.43, dietary restrictions, ADA renal diet when tolerating p.o. well. PT eval and treat. 6. Gastroesophageal reflux disease, prophylaxis. Protonix. Time spent 35 minutes. Billing code [id number]. Dictated by Jadiel Mccurdy, STUDIO HAND MD YESENIA SotoP/MODL /[id number]
[2020-01-13 04:00] VITALS: BP 154/79
[2020-01-13 05:43] LABS: BASOPHILS % 0.2 % (0.0-1.0); EOSINOPHILS % 0.3 % (0.0-6.0); HEMATOCRIT 41.7 % (34.2-44.1); HEMOGLOBIN 12.9 g/dL (12.0-16.0); LYMPHOCYTES # (AUTO) 1.1 (1.0-3.2); LYMPHOCYTES % 11.6 % (18.0-39.1); MEAN CORPUSCULAR HEMOGLOBIN 26.2 pg (28-32); MEAN CORPUSCULAR HGB CONC 30.9 g/dL (31-35); MEAN CORPUSCULAR VOLUME 84.6 fL (81-99); NEUTROPHILS # (AUTO) 6.9 (2.1-6.9); NEUTROPHILS % 76.2 % (38.7-80.0); PLATELET COUNT 170 x10e3/uL (140-360); RED BLOOD COUNT 4.93 x10e6/uL (3.6-5.1); RED CELL DISTRIBUTION WIDTH 13.4 % (11.7-14.4)
[2020-01-13] MEDS: SODIUM CHLORIDE 0.9% 1000ML 1,000 ML IV SCH (06:05)
[2020-01-13] MEDS: PIPER-TAZ 3.375 GM / NS 50ML IV SCH ×2 (06:05→13:50)
[2020-01-13 06:18] LABS: ANION GAP 13.6 mmol/L (8-16); CALCIUM 8.9 mg/dL (8.4-10.2); CREATININE, SERUM 1.06 mg/dL (0.57-1.11); POTASSIUM 3.6 mmol/L (3.5-5.1)
[2020-01-13 08:19] VITALS: BP 162/78
[2020-01-13 11:36] VITALS: BP 148/77
[2020-01-13] MEDS ORDERED: Acetaminophen Supp PR (11:47)
[2020-01-13] MEDS ORDERED: ZOFRAN8 MG PO (11:47)
--- NOTE | 2020-01-13 13:55 | Discharge Summary ---
PRIMARY CARE PHYSICIAN: She does not have a primary care physician. CONSULTING PHYSICIANS: Sergio Clayton MD with Surgery. CHIEF COMPLAINT: Abdominal pain. HISTORY OF PRESENT ILLNESS: The patient is a 59-year-old female with epigastric abdominal pain for two days, that radiates to the mid chest. She was seen and evaluated in the emergency department and ultrasound of the gallbladder revealed borderline gallbladder hydrops, and cholelithiasis. Surgery has been consulted for further evaluation. PAST MEDICAL HISTORY: Chronic GERD, community-acquired pneumonia, right upper lobe in 2018, morbid obesity. PAST SURGICAL HISTORY: , left nephrectomy for donor purpose to her son. FAMILY HISTORY: Son had renal failure. Mom had cholecystectomy, GERD, and hypothyroidism. SOCIAL HISTORY: The patient admits to smoking about a quarter of a pack per day for two years when she was in her teens, has since quit. Drinks alcohol on occasionally years ago, but no longer drinks. Denies use of illicit drugs. ALLERGIES: NO KNOWN ALLERGIES. ADMITTING DIAGNOSES: 1. Acute cholecystitis and cholelithiasis. 2. Controlled type 2 diabetes mellitus. 3. Acute kidney injury. 4. Mild hypoxia. 5. Morbid obesity with BMI 46.43. 6. Gastroesophageal reflux disease. DISCHARGE DIAGNOSES: 1. Acute cholecystitis with cholelithiasis, status post laparoscopic cholecystectomy by Dr. Clayton on 01/12/2020. 2. Controlled type 2 diabetes mellitus. 3. Acute kidney injury, improving. 4. Mild hypoxia. 5. Morbid obesity with BMI of 46.43. 6. Gastroesophageal reflux disease. On admission 01/10/2020 labs; WBC 10.08, hemoglobin 15.4, hematocrit 48.5, platelets 201, and neutrophils 82.4%. Sodium 136, potassium 3.8, chloride 97, CO2 of 28, anion gap 14.8, BUN 8, creatinine 1.15, estimated GFR 48, and glucose 173. Hemoglobin A1c 6.5% on 01/11/2020. Calcium 10.1, total bilirubin 1.1, AST 29, ALT 52, alkaline phosphatase 97. Creatine kinase 49, CK-MB 0.7, troponin I 0.052. Total protein 7.5, albumin 3.8, amylase 54, lipase 32. TSH 1.745. Coronavirus PCR not detected on 01/10/2020. Gallbladder ultrasound on 01/10/2020, showed borderline gallbladder hydrops and cholelithiasis with cholecystitis. Possible nuclear medicine HIDA scan done on 01/11/2020, showed absence of filling of the gallbladder even following administration of morphine, which is consistent with the diagnosis of acute cystic duct obstruction/acute cholecystitis. During her stay, the patient diagnosed with type 2 diabetes mellitus as her hemoglobin A1c was 6.5%. The patient was informed of her diagnosis and explained to the patient that, although she is diagnosed with diabetes, it is currently well controlled. She does need to change her diet and lose weight if possible. Her baseline GFR is likely 50s per the 2018 records, probable CKD stage 3. Her renal labs continue to improve and she has been receiving normal saline at 125 mL an hour. Oxygen saturation of 93% while on supplemental oxygen, this was weaned to room air. Incentive spirometry was encouraged hourly while awake. [employer] renal diet was utilized during her stay. She can discharge home today as per conversation with Dr. Clayton this morning, on an 1800-calorie ADA diet. Activity level as tolerated. When I saw the patient, she said her pain in her abdomen was about 1 to 2 on a scale of 0 to 10. She ate all of her clear liquid diet breakfast. She was having eructation, but not passing gas. No bowel movement. No nausea. No vomiting. PHYSICAL EXAMINATION: No change in physical examination. VITAL SIGNS: This morning; temperature 99.0, heart rate 93, blood pressure 154/79, respirations 17, and oxygen saturation 91%. More recent vital signs around noon; temperature 98.4, heart rate 80, respirations 20, blood pressure 148/77, oxygen saturation 94% on room air. LABORATORY DATA: Labs from today; WBC 9.1, hemoglobin 12.4, hematocrit 41.7, and platelets 170. Phosphorus 2.8, magnesium 1.9. Lipid levels generally within normal limits. TSH 1.745. Sodium 140, potassium 3.6, chloride 104, CO2 of 26, BUN 7, creatinine 1.06, estimated GFR 53, glucose 138, calcium 8.9. The patient establishing followup with the PCP in 1 to 2 weeks. Follow up with Dr. Clayton as directed. Dictated by Jadiel Mccurdy NP Edvin Mckeon MD HWP/MODL /[id number]
--- NOTE | 2020-01-13 15:04 | NUR ---
patient discharged home.Alert with no distress, prescription given, IV canula removed with tip intact, no ss of infiltration, 5 Trochar site abdomen is intact, transported via wheelchair to front lobby, family here to pick patient
== END 2020-01-13 17:45 | disposition home or self-care (01) ==
LOC: ER 19:50 → ERHOLD 23:41 → INTOOBSV 23:41 → MED/SURG2 01-11 00:09
PROVIDERS: ADMIT Internal Medicine; ATTEND Internal Medicine
DX: K80.00 Calculus of gallbladder with acute cholecystitis without obstruction (principal); K21.9 Gastro-esophageal reflux disease without esophagitis; K82.1 Hydrops of gallbladder; E11.9 Type 2 diabetes mellitus without complications; R09.02 Hypoxemia; E66.01 Morbid (severe) obesity due to excess calories; Z68.42 Body mass index [BMI] 45.0-49.9, adult; D64.9 Anemia, unspecified; N17.9 Acute kidney failure, unspecified; Z11.59 Encounter for screening for other viral diseases
CPT/HCPCS: 36415 ×4; 47562; 76705; 78227; 80048 ×2; 80053 ×2; 80061; 82150 ×2; 82550; 82553; 83036; 83690 ×2; 83735; 84100; 84443; 84484; 85025 ×4; 87635; 88304; 93005; 97116; 97139; 97161; 99284; A9537; C9113; G0378 ×4; J0500; J2270; J2405 ×3; J2543 ×3; J2550; J2765; J7030 ×3

== ENCOUNTER 2020-11-10 22:38 | Emergency (ER) | payer OTHER ==
[~2020-11-10] VITALS: Ht 180.3 cm; Wt 151.0 kg
[~2020-11-10 22:38] MED LIST changes: +Acetaminophen Supp PR; +ZOFRAN8 MG PO
[2020-11-10] MEDS ORDERED: PENICILLIN G BENZATHINE LA 1.2 MU TBX IM STA (22:56)
[2020-11-10] MEDS ORDERED: PENICILLIN G BENZATHINE LA 1.2 MU TBX ONE (23:10)
== END 2020-11-10 23:34 | disposition home or self-care (01) ==
LOC: ER 22:54
DX: K04.7 Periapical abscess without sinus (principal); K02.9 Dental caries, unspecified; K21.9 Gastro-esophageal reflux disease without esophagitis
CPT/HCPCS: 99282; J0561